=== PATIENT | male | born 1960 | race Caucasian/White ===

== ENCOUNTER 2018-03-02 21:09 | Emergency (ER) | payer OTHER ==
[2018-03-02] MEDS ORDERED: CHLORHEXIDINE GLUCONATE 4 % 15 ML UD TOP ONE (21:11)
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
[2018-03-02] MEDS ORDERED: LIDOCAINE 1% 10 ML VIAL INJ ONE (21:54)
[2018-03-02] MEDS ORDERED: NEOMYCIN-BACITRACIN-POLYMYXIN 0.9 GM UD TOP ONE (22:19)
[2018-03-03] MEDS ORDERED: cefTRIAXone SODIUM 1 GM VIAL IM ONE (00:54)
[2018-03-03] MEDS ORDERED: TETANUS,DIPHTHERIA,PERTUSSIS 1 EA SYG IM ONE (00:54)
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
[2018-03-03] MEDS ORDERED: LIDOCAINE 1% 10 ML VIAL INJ ONE (01:14)
[2018-03-03 01:36] VITALS: BP 124/81; TEMP 98.6; O2SAT 99
== END 2018-03-03 01:36 | disposition home or self-care (01) ==
LOC: ER 21:09
DX: S61.402A Unspecified open wound of left hand, initial encounter (principal); I10 Essential (primary) hypertension; N28.9 Disorder of kidney and ureter, unspecified; Z23 Encounter for immunization; W34.00XA Accidental discharge from unspecified firearms or gun, initial encounter; Y92.9 Unspecified place or not applicable
CPT/HCPCS: 73130; 90471; 90715; J0696

== ENCOUNTER → 2020-10-15 | Outpatient (CLI) | payer BC, OTHER ==
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
== END ==
LOC: GMAE 09:37
PROVIDERS: ATTEND Family Medicine
DX: R22.1 Localized swelling, mass and lump, neck (principal); D63.1 Anemia in chronic kidney disease; N39.0 Urinary tract infection, site not specified; N25.81 Secondary hyperparathyroidism of renal origin; E55.9 Vitamin D deficiency, unspecified